=== PATIENT | female | born 1945 ===

== ENCOUNTER → 2016-06-29 | Outpatient (CLI) | payer OTHER, MEDICARE | LOC: BHFA 11:15 | PROVIDERS: ATTEND Internal Medicine Interventional Cardiology | DX: I77.9 Disorder of arteries and arterioles, unspecified (principal); R07.89 Other chest pain; I10 Essential (primary) hypertension ==

== ENCOUNTER → 2016-08-31 | Outpatient (CLI) | payer OTHER, MEDICARE | LOC: FIMAGING 14:04 | PROVIDERS: ATTEND Internal Medicine | DX: E04.2 Nontoxic multinodular goiter (principal) ==

== ENCOUNTER → 2016-10-31 | Outpatient (CLI) | payer OTHER, MEDICARE ==
[~2016-10-31] MED LIST: LIDOCAINE 1% 300 MG/30 ML SDV ONE
== END ==
LOC: FIMAGING 11:55
PROVIDERS: ATTEND Internal Medicine
PROC: 0G9K3ZX Drainage of Thyroid Gland, Percutaneous Approach, Diagnostic (ICD-10-PCS; principal; 2016-10-31)
DX: E04.1 Nontoxic single thyroid nodule (principal)

== ENCOUNTER → 2017-02-07 | Outpatient (CLI) | payer OTHER, MEDICARE | LOC: BHFA 15:30 | PROVIDERS: ATTEND Internal Medicine Cardiovascular Disease | DX: I25.10 Atherosclerotic heart disease of native coronary artery without angina pectoris (principal) ==

== ENCOUNTER → 2017-02-10 | Outpatient (CLI) | payer OTHER, MEDICARE | LOC: BHFA 14:00 | PROVIDERS: ATTEND Internal Medicine Cardiovascular Disease | DX: I25.10 Atherosclerotic heart disease of native coronary artery without angina pectoris (principal) ==

== ENCOUNTER → 2017-04-04 | Outpatient (CLI) | payer OTHER, MEDICARE | LOC: BHFA 13:30 | PROVIDERS: ATTEND Internal Medicine Cardiovascular Disease | DX: R07.9 Chest pain, unspecified (principal); R00.2 Palpitations | CPT/HCPCS: 78452; 93017; A9500 ==

== ENCOUNTER 2017-06-12 10:31 | Emergency (ER) | payer OTHER, MEDICARE ==
--- NOTE | 2017-06-12 10:50 | EDPHY ---
H & P Stated Complaint: Fell yesterday, injury to right hand and right side of face. Time Seen by Provider: 06/12/17 10:49 HPI/ROS: HPI: This is a 72-year-old female who presents with Chief Complaint: Injury to right hand and right face Location: Right hand, right side of face Quality: Injury Duration: Yesterday Signs and Symptoms: No bleeding, no radiation, no numbness, no weakness, no tingling, no incontinence, no decreased range of motion, + swelling, + pain, no fever Timing: Acute Severity: [id number] Context: Patient is right-hand dominant, presents with complaints mild-to- moderate swelling of the right in 4th knuckles since yesterday afternoon. Patient reports that she was walking down [facility] when she accidentally tripped on the sidewalk and fell forward. Denies LOC/head injury/neck pain/ dizziness/nausea/vomiting/amnesia. She reports that she used her right hand to stop her fall. She felt moderate pain in 4th and 5th digits status post hitting the ground. She noted some mild swelling and bruising yesterday afternoon and this morning. Patient believes that she may have fractured 1 of her fingers and is requesting an x-ray. Denies any paresthesias/weakness. Patient is unsure of her last tetanus shot but she politely declines any in the emergency room today as she prefers to follow up with her primary care provider. She also reports that her sunglasses hit her right cheek during the fall. Modifying Factors: None Comment: ROS: see HPI Constitutional: No fever, no chills, no weight loss Eyes: No blurred vision Respiratory: No shortness of breath, no cough Cardiovascular: No chest pain Gastrointestinal: No nausea, no vomiting no diarrhea Genitourinary: No dysuria Extremities: No myalgias Neurologic: No weakness, no numbness Skin: No rashes Hematologic: No bruising, no bleeding MEDICAL/SURGICAL/SOCIAL HISTORY: Medical history: Hypertension, depression Surgical history: Denies Social history: Retired. CONSTITUTIONAL: Polite and cooperative elderly white female, awake and alert, no obvious distress HEENT: Small area of bruising noted on the right cheek; no crepitus/step-off noted. normocephalic, PERRL, EOMI. no globe entrapment, no raccoon eyes. no Huerta signs.Tympanic membranes clear. No tympanic membrane rupture. Nares patent; no septal hematoma. Oropharynx clear, no exudate and moist pink mucosa. No malocclusion. no dental trauma. Airway patent. No lymphadenopathy. NECK: supple, no midline tenderness, flexion 45 degrees, extension 45 degrees, right and left lateral flexion 45 degrees. No meningismus. Cardiovascular: Normal S1/S2, regular rate, regular rhythm, without murmur rub or gallop. PULMONARY/CHEST: Symmetrical and nontender. no crepitus. Clear to auscultation bilaterally. Good air movement. No accessory muscle usage. ABDOMEN: Soft, nondistended, nontender, no ecchymosis, no rebound, no guarding , no peritoneal signs, no masses or organomegaly. No CVAT. PELVIC: no pain with rocking; bilateral hips flexion 125 degrees, extension 30 degrees, with no pain internal rotation and no pain external rotation. BACK: No midline tenderness, no paraspinous spasm, deep tendon reflexes 2/2, no pain with straight leg raise EXTREMITIES: 2/2 pulses, right WRIST: Extension to 70, flexion to 80, radial deviation to 20 degree, ulnar deviation to 30, no scaphoid tenderness, no tenderness over ulnar styloid, no tenderness over radial styloid. Right 4th and 5th metacarpals show [id number] swelling in the mid hand with tenderness to palpation and mild black bruising. no deformities, no clubbing, no cyanosis or edema. NEUROLOGICAL: no focal neuro deficits. GCS 15. SKIN: Warm and dry, no erythema. no rash. Good capillary refill. Source: Patient, RN/MD Exam Limitations: No limitations - Personal History Current Tetanus Diphtheria and Acellular Pertussis (TDAP): Unsure - Medical/Surgical History Hx Asthma: No Hx Chronic Respiratory Disease: No Hx Diabetes: No Hx Cardiac Disease: No Hx Renal Disease: No Hx Cirrhosis: No Hx Alcoholism: No Hx HIV/AIDS: No Hx Splenectomy or Spleen Trauma: No Other PMH: HTN - Social History Smoking Status: Never smoked Constitutional: Initial Vital Signs Temperature (C) 36.6 C 06/12/17 10:32 Heart Rate 73 06/12/17 10:32 Respiratory Rate 16 06/12/17 10:32 Blood Pressure 134/59 H 06/12/17 10:32 O2 Sat (%) 96 06/12/17 10:32 O2 Delivery Mode Room Air Allergies/Adverse Reactions: No Known Allergies Allergy (Unverified 05/16/14 15:11) Home Medications: Medication Instructions Recorded Diovan 05/16/14 Lexapro 05/16/14 Medical Decision Making - Diagnostics Imaging Results: Imaging Impressions Hand X-Ray 06/12/17 10:55 Impression: Negative. No acute fracture. Wrist X-Ray 06/12/17 10:55 Impression: Negative. No acute fracture. Procedures: Procedure: Splint placement. A right Velcro wrist splint was applied by the Emergency Room neurophysiological technician. After application of the splint I returned and re-examined the patient. The splint was adequately immobilizing the joint and distal to the splint the patient's circulation and sensation was intact. ED Course/Re-evaluation: Right hand x-ray, right wrist x-ray ordered No signs of neurovascular compromise/tenting of skin/compartment syndrome/ extremities and joints examined above and below area of concern and are neurovascularly intact. No indication for CT head or CT cervical imaging. Patient politely declined and is adamant that she did not hit her head or lose consciousness and that she does not need any imaging of her head or neck. X-ray my read shows mild soft tissue swelling; no fracture/dislocation Placed in right Velcro wrist splint, rice therapy, Ortho follow-up This patient was seen under the supervision of my secondary supervising physician. I evaluated care for this patient independently. Differential Diagnosis: Differential diagnosis includes but is not limited to tendon injury, nerve injury, phalanx fracture, mid hand fracture, radial fracture, ulnar fracture. Departure - Departure Disposition: Home, Routine, Self-Care Clinical Impression: Contusion of hand, right Qualifiers: Encounter type: initial encounter Qualified Code(s): S60.221A - Contusion of right hand, initial encounter Sprain of hand, right Qualifiers: Encounter type: initial encounter Qualified Code(s): S63.91XA - Sprain of unspecified part of right wrist and hand, initial encounter Sprain of right wrist Qualifiers: Encounter type: initial encounter Qualified Code(s): S63.501A - Unspecified sprain of right wrist, initial encounter Condition: Good Instructions: Contusion in Adults (ED) Additional Instructions: Wear the Velcro wrist splint while out of bed until pain free or seen by Orthopedics. Take Tylenol 650 mg every 4 hours and/or Ibuprofen 600 mg every 8 hours with food as needed for pain. Use Percocet every 6 hours as needed for severe/break through pain. Apply ice for 30 minutes at a time; 2-3 times per day for the next 1-2 days. Follow up with Orthopedics in 7-10 days if symptoms persist at which time they will evaluate and recommend with you if conservative management versus further imaging is indicated. The x-rays obtained in the emergency department today demonstrate no evidence of an obvious fracture. Sometimes fractures are not obvious on the initial set of x-rays performed in the ED. For this reason, you should have repeat x-rays performed in 7-10 days if you are having any pain exclude the possibility of an occult fracture. Return to the ER immediately if you experience new or worsening pain, discoloration, numbness, tingling, or any other symptoms that concern you. Referrals: Marisela Robertson MD [Primary Care Provider] - As per Instructions
[2017-06-12 12:04] VITALS: BP 138/90
== END 2017-06-12 12:04 | disposition home or self-care (01) ==
DX: S60.221A Contusion of right hand, initial encounter (principal); S63.91XA Sprain of unspecified part of right wrist and hand, initial encounter; S63.501A Unspecified sprain of right wrist, initial encounter; I10 Essential (primary) hypertension; W01.198A Fall on same level from slipping, tripping and stumbling with subsequent striking against other object, initial encounter; Y92.410 Unspecified street and highway as the place of occurrence of the external cause; Y99.8 Other external cause status; Y93.01 Activity, walking, marching and hiking

== ENCOUNTER → 2017-06-21 | Outpatient (CLI) | payer OTHER, MEDICARE | LOC: FIMAGING 15:20 | DX: Z09 Encounter for follow-up examination after completed treatment for conditions other than malignant neoplasm (principal); S60.221A Contusion of right hand, initial encounter; M85.80 Other specified disorders of bone density and structure, unspecified site; R93.6 Abnormal findings on diagnostic imaging of limbs ==

== ENCOUNTER → 2017-10-05 | Outpatient (CLI) | payer OTHER, MEDICARE | LOC: FIMAGING 10:50 | PROVIDERS: ATTEND Internal Medicine | DX: Z13.820 Encounter for screening for osteoporosis (principal); M81.0 Age-related osteoporosis without current pathological fracture; E21.3 Hyperparathyroidism, unspecified; Z78.0 Asymptomatic menopausal state ==

== ENCOUNTER → 2017-11-09 | Outpatient (CLI) | payer OTHER, MEDICARE | LOC: FCPNEURO 21:30 | PROVIDERS: ATTEND Psychiatry & Neurology Sleep Medicine | DX: G47.33 Obstructive sleep apnea (adult) (pediatric) (principal) ==

== ENCOUNTER → 2017-12-04 | Outpatient (CLI) | payer OTHER, MEDICARE | LOC: BHFA 13:00 | PROVIDERS: ATTEND Internal Medicine Interventional Cardiology | DX: I48.0 Paroxysmal atrial fibrillation (principal); R00.2 Palpitations ==

== ENCOUNTER → 2018-03-08 | Outpatient (CLI) | payer OTHER, MEDICARE | LOC: FIMAGING 09:44 | PROVIDERS: ATTEND Surgery | DX: E21.0 Primary hyperparathyroidism (principal) | CPT/HCPCS: 78070; A9500 ==

== ENCOUNTER 2018-03-09 06:37 | Day surgery (SDC) | payer OTHER, MEDICARE ==
[2018-03-09] MEDS ORDERED: ceFAZolin 2 GM/DEXTROSE 100 ML IV ONE (06:55)
[2018-03-09] MEDS ORDERED: LR 1,000 ML IV ONE (06:56)
[2018-03-09] MEDS ORDERED: LIDOCAINE 1% 2 ML INJ ID PRN (06:56)
--- NOTE | 2018-03-09 06:57 | PDHPUP ---
History & Physical Update H&P update statement: This history and physical update is based on an assessment of the patient which was completed after admission or registration (within 24 hours), but prior to the surgery/procedure. updated H&P update: H&P reviewed & patient examined, no change in patient's condition since H&P completed H&P changes: no changes
[2018-03-09] MEDS ORDERED: CLINDAMYCIN 900 MG/DEXTROSE 50 ML IV ONE (07:10)
[2018-03-09 07:57] LABS: INR 0.88 (0.83-1.16); PROTIME(PATIENT) 12.2 SEC (12.0-15.0)
[2018-03-09] MEDS ORDERED: MIDAZOLAM 2 MG/2 ML VIAL IVP ONE (08:24)
[2018-03-09] MEDS ORDERED: oxyCODONE IR 5 MG TAB PO PRN (08:24)
[2018-03-09] MEDS ORDERED: ONDANSETRON 4 MG/2 ML VIAL IVP PRN (08:24)
[2018-03-09] MEDS ORDERED: HYDROmorphONE/DILAUDID 2 MG/ML INJ IVP PRN (08:24)
[2018-03-09] MEDS ORDERED: ALBUTEROL 3 ML DEYVIAL IH PRN (08:24)
[2018-03-09] MEDS ORDERED: NALOXONE HCL 0.4 MG/ML INJ IVP PRN (08:24)
[2018-03-09] MEDS ORDERED: DEXAMETHASONE 4 MG/ML VIAL IVP PRN (08:24)
[2018-03-09] MEDS ORDERED: ACETAMINOPHEN 500 MG TAB PO PRN (08:24)
[2018-03-09] MEDS ORDERED: fentaNYL 100 MCG/2 ML INJ IVP PRN (08:24)
--- NOTE | 2018-03-09 08:25 | PDANEPAE ---
ANE History of Present Illness Excisional Biopsy of Cervical Lymph node ANE Past Medical History - Cardiovascular History Hx Hypertension: Yes Hx Arrhythmias: Yes Hx Chest Pain: No Hx Coronary Artery / Peripheral Vascular Disease: Yes Hx CHF / Valvular Disease: No Hx Palpitations: Yes Cardiovascular History Comment: HYPERLIPIDEMIA. PAROXYSMAL ATRIAL FIB - Pulmonary History Hx COPD: No Hx Asthma/Reactive Airway Disease: No Hx Recent Upper Respiratory Infection: No Hx Oxygen in Use at Home: No Hx Sleep Apnea: No Sleep Apnea Screening Result - Last Documented: Negative - Neurologic History Hx Cerebrovascular Accident: No Hx Seizures: No Hx Dementia: No Neurologic History Comment: OCCASIONAL H/As - Endocrine History Hx Diabetes: No Endocrine History Comment: A1C 5.4 - Renal History Hx Renal Disorders: No - Liver History Hx Hepatic Disorders: No Hepatic History Comment: CHOLECYSTECTOMY - Neurological & Psychiatric Hx Hx Neurological and Psychiatric Disorders: Yes Neurological / Psychiatric History Comment: ANXIETY - Cancer History Hx Cancer: No - Congenital Disorder History Hx Congenital Disorders: No Congenital History Comment: FAMILY HX CVA - GI History Hx Gastrointestinal Disorders: No - Other Health History Other Health History: NEG - Chronic Pain History Chronic Pain: No - Surgical History Prior Surgeries: CHOLECYSTECTOMY - AGE 26. 2012 ANKLE FX REPAIR. HARDWARE REMOVAL ANKLE ANE Review of Systems Review of Systems: - Exercise capacity METS (RN): 5 METS ANE Patient History - Allergies Allergies/Adverse Reactions: cefazolin [From Ancef] Allergy (Verified 03/09/18 07:08) - Home Medications Home Medications: Escitalopram Oxalate [Lexapro] 20 mg PO DAILY 05/16/14 [Last Taken 03/08/18 20: 30] Valsartan [Diovan (*)] 160 mg PO DAILY 05/16/14 [Last Taken 03/07/18] Apixaban [Eliquis] 5 mg PO BID 03/07/18 [Last Taken 03/06/18] Cholecalciferol Vit D3 [Vitamin D3 2000 units tab (OTC)] 2,000 units PO DAILY [Last Taken 03/05/18] Cyanocobalamin [Vitamin B12 (*)] 1,000 mcg PO BID 03/07/18 [Last Taken 03/05/18] Diltiazem HCl [Cartia Xt] 120 mg PO DAILY 03/07/18 [Last Taken 03/08/18] Propafenone HCl [Rythmol 150mg (*)] 150 mg PO TID 03/07/18 [Last Taken 03/09/18 04:30] - NPO status NPO Since - Liquids (Date): 03/09/18 NPO Since - Liquids (Time): 05:00 NPO Since - Solids (Date): 03/09/18 NPO Since - Solids (Time): 20:00 - Smoking Hx Smoking Status: Never smoked ANE Labs/Vital Signs - Labs Result Diagrams: 03/09/18 07:35 - Vital Signs Blood Pressure: 140/74 Heart Rate: 59 Respiratory Rate: 16 O2 Sat (%): 92 Height: 152.4 cm Weight: 74.843 kg ANE Physical Exam - Airway Neck exam: FROM Mallampati Score: Class 2 Mouth exam: normal dental/mouth exam - Pulmonary Pulmonary: clear to auscultation - Cardiovascular Cardiovascular: regular rate and rhythym - ASA Status ASA Status: III ANE Anesthesia Plan Anesthesia Plan: general endotracheal anesthesia
[2018-03-09] MEDS ORDERED: THROMBIN (BOVINE) 5,000 UNIT VIAL TP ONE (08:28)
[2018-03-09] MEDS ORDERED: BUPIVACAINE/EPI 0.5% 30 ML SDV ONE (08:28)
[2018-03-09] MEDS ORDERED: PROPOFOL 200 MG/20 ML VIAL ONE ×2 (08:32→09:40)
[2018-03-09] MEDS ORDERED: fentaNYL 100 MCG/2 ML INJ ONE ×2 (08:32→09:09)
[2018-03-09] MEDS ORDERED: LIDOCAINE 2% 100 MG/5 ML SYR ONE (08:37)
[2018-03-09] MEDS ORDERED: ONDANSETRON 4 MG/2 ML VIAL ONE (08:38)
[2018-03-09] MEDS ORDERED: DEXAMETHASONE 4 MG/ML VIAL ONE ×2 (08:38)
[2018-03-09] MEDS ORDERED: ROCURONIUM 50 MG/5 ML VIAL ONE (08:38)
[2018-03-09] MEDS ORDERED: SUGAMMADEX SODIUM 200 MG/2 ML VIAL IVP ONE (09:34)
--- NOTE | 2018-03-09 09:54 | POSTOPPROG ---
Post Op Note Date of Operation: 03/09/18 Surgeon: Brendan Dey Cell Tester: Mohit Burns Anesthesiologist: Dr Ramos Anesthesia: GET(General Endotracheal) Pre-op Diagnosis: Left cervical node Hx of possible lymphoma Post-op Diagnosis: same Indication: same Procedure: Left deep cervical node excision Findings: no abnormalities noted during surgery Inf/Abcess present in the surg proc area at time of surgery?: No Depth: Deep Incisional (Fascial) EBL: Minimal Specimen(s): cervical node
--- NOTE | 2018-03-09 09:57 | POSTANESTH ---
Post Anesthetic Evaluation Cardiovascular Status: Normal, Stable Respiratory Status: Normal, Stable Level of Consciousness/Mental Status: Can Participate in Eval, Mildly Sleepy, Arousable Pain Control: Adequate, Prn Tx Ordered Nausea/Vomiting Control: Adequate, Prn Tx Ordered Complications Possibly Related to Anesthesia: None Noted
[2018-03-09 11:38] VITALS: BP 115/66
== END 2018-03-09 12:07 | disposition home or self-care (01) ==
LOC: FSGY 06:37 → UNDOADMOB 06:37 → F3E 06:37 → EDSTATUS 08:30 → UNDODISOB 12:07 → FSGY 12:07
PROVIDERS: ATTEND Surgery
PROC: 07B20ZX Excision of Left Neck Lymphatic, Open Approach, Diagnostic (ICD-10-PCS; principal; 2018-03-09 08:30)
DX: C91.10 Chronic lymphocytic leukemia of B-cell type not having achieved remission (principal); E21.3 Hyperparathyroidism, unspecified; I10 Essential (primary) hypertension; I77.9 Disorder of arteries and arterioles, unspecified; I48.0 Paroxysmal atrial fibrillation
CPT/HCPCS: 88184-90; 88185-91; J0690; J1100; J2001; J2250; J2405; J2704; J3010

== ENCOUNTER 2018-03-11 08:48 | Inpatient (IN) | payer OTHER, MEDICARE ==
--- NOTE | 2018-03-11 09:00 | EDPHY ---
H & P Stated Complaint: rash s/p surgery Time Seen by Provider: 03/11/18 08:59 HPI/ROS: CHIEF COMPLAINT: Rash following surgery HISTORY OF PRESENT ILLNESS: The patient presents to the ED after she has developed a rash to her torso following surgery. The patient recently had a neck surgery performed by Dr. Dey. It was uneventful. She received antibiotics and has now developed a rash in her armpits anterior chest wall. She complains of systemic symptoms of generalized malaise and fatigue. The patient denies any history of fall or trauma. She has not been taking pain medications. She does have a history of a fairly severe skin reaction either from a Skin prep or preoperative antibiotic she received in the past. The patient had a deep node dissection in her left neck. In reviewing her preoperative antibiotics it is uncertain whether she received clindamycin or Ancef. REVIEW OF SYSTEMS: A comprehensive 10 point review of systems is otherwise negative aside from elements mentioned in the history of present illness. Source: Patient Exam Limitations: No limitations - Personal History Current Tetanus/Diphtheria Vaccine: Unsure Current Tetanus Diphtheria and Acellular Pertussis (TDAP): Unsure - Medical/Surgical History Hx Asthma: No Hx Chronic Respiratory Disease: No Hx Diabetes: No Hx Cardiac Disease: Yes Hx Renal Disease: No Hx Cirrhosis: No Hx Alcoholism: No Hx HIV/AIDS: No Hx Splenectomy or Spleen Trauma: No Other PMH: HTN, afib, - Social History Smoking Status: Never smoked - Physical Exam Exam: General Appearance: Alert, no distress Eyes: Pupils equal and round no pallor or injection Neck: Dry dressing over surgical incision which is clean dry and intact ENT, Mouth: Dry mucous membranes Respiratory: There are no retractions, lungs are clear to auscultation Cardiovascular: Tachycardic, irregular Gastrointestinal: Abdomen is soft and nontender, no masses, bowel sounds normal Neurological: 5/5 strength noted all 4 extremities Skin: Diffuse erythematous blistering rash noted on the torso and axilla Musculoskeletal: Neck is supple nontender Extremities: symmetrical, full range of motion Psychiatric: Patient is oriented X 3, there is no agitation Constitutional: Initial Vital Signs Temperature (C) 36.5 C 03/11/18 08:57 Heart Rate 88 03/11/18 08:57 Respiratory Rate 16 03/11/18 08:57 Blood Pressure 81/51 L 03/11/18 08:57 O2 Sat (%) 92 03/11/18 08:57 O2 Delivery Mode Room Air Allergies/Adverse Reactions: cefazolin [From Ancef] Allergy (Verified 03/11/18 08:56) Home Medications: Medication Instructions Recorded Escitalopram Oxalate [Lexapro] 20 mg PO HS 05/16/14 Valsartan [Diovan (*)] 160 mg PO DAILY 05/16/14 Apixaban [Eliquis] 5 mg PO BID 03/07/18 Diltiazem HCl [Cartia Xt] 120 mg PO DAILY 03/07/18 Propafenone HCl [Rythmol 150mg (*)] 150 mg PO TID 03/07/18 Medical Decision Making - Diagnostics EKG Interpretation: EKG: Complete interpretation has been separately recorded in the [facility] archive. Summary impression: Atrial fibrillation, rate 149 ED Course/Re-evaluation: The patient presents the emergency department after a likely drug reaction following recent surgery. I did inform Dr. Dey of her arrival in the emergency department. Patient is noted to have a reassuring venous pH and arterial lactate. Blood cultures x2 have been ordered. The patient has had a similar reaction in the past either to a Skin prep or preoperative antibiotic. Patient is noted to be in recurrent atrial fibrillation. The patient did receive IV fluid rehydration in the emergency department. Her tachycardia improved from 150 to 80s. The patient will require admission to the hospital for observation this evening. Consultation is made with the hospitalist service. The patient will be admitted by Dr. Garcia. Differential Diagnosis: Differential diagnosis considered includes drug reaction, Stoddard-Chi syndrome, arrhythmia, postoperative infection, metabolic derangement - Data Points Laboratory Results: Laboratory Results 03/11/18 05:30 03/11/18 10:45 03/11/18 03/11/18 03/11/18 10:45 10:08 05:30 WBC RBC Hgb Hct MCV MCH MCHC RDW Plt Count MPV Neut % (Auto) Lymph % (Auto) [place] % (Auto) Eos % (Auto) Baso % (Auto) Nucleat RBC Rel Count Absolute Neuts (auto) Absolute Lymphs (auto) Absolute Monos (auto) Absolute Eos (auto) Absolute Basos (auto) Absolute Nucleated RBC Immature Gran % Immature Gran # Puncture Site RIGHT RADIAL Patient Temperature 37.0 DEGREES DEGREES pCO2 33 mmHg L mmHg (34-38) pO2 58 mmHg L mmHg (65-75) Total CO2 20 mEq/L L mEq/L (23-27) ABG pH 7.37 (7.35-7.45) ABG HCO3 19 mEq/L L mEq/L (22-26) ABG O2 Saturation 89 % L % (92-95) ABG Base Excess -5.1 mEq/L L mEq/L (-2.5-2.5) ABG Lactic Acid 1.1 mmol/L mmol/L (0.5-1.6) O2 Concentration % % % (0-100) Sodium 129 mEq/L L mEq/L REJ (135-145) Potassium 4.6 mEq/L mEq/L REJ (3.5-5.2) Chloride 104 mEq/L mEq/L REJ (97-110) Carbon Dioxide 18 mEq/l L mEq/l REJ (22-31) Anion Gap 7 mEq/L mEq/L REJ (6-14) BUN 26 mg/dL H mg/dL REJ (7-23) Creatinine 1.0 mg/dL mg/dL REJ (0.6-1.0) Estimated GFR 55 REJ Glucose 88 mg/dL mg/dL REJ (70-100) Calcium 8.5 mg/dL mg/dL REJ (8.5-10.4) Procalcitonin 0.07 ng/mL ng/mL (0.02-0.10) Prolactin 11.7 ng/mL ng/mL (3.0-18.6) 03/11/18 05:30 WBC 18.86 10^3/uL H 10^3/uL (3.80-9.50) RBC 4.80 10^6/uL 10^6/uL (4.18-5.33) Hgb 14.3 g/dL g/dL (12.6-16.3) Hct 42.7 % % (38.0-47.0) MCV 89.0 fL fL (81.5-99.8) MCH 29.8 pg pg (27.9-34.1) MCHC 33.5 g/dL g/dL (32.4-36.7) RDW 13.3 % % (11.5-15.2) Plt Count 256 10^3/uL 10^3/uL (150-400) MPV 10.8 fL fL (8.7-11.7) Neut % (Auto) 75.7 % H % (39.3-74.2) Lymph % (Auto) 15.7 % % (15.0-45.0) [place] % (Auto) 5.7 % % (4.5-13.0) Eos % (Auto) 1.2 % % (0.6-7.6) Baso % (Auto) 0.3 % % (0.3-1.7) Nucleat RBC Rel Count 0.0 % % (0.0-0.2) Absolute Neuts (auto) 14.29 10^3/uL H 10^3/uL (1.70-6.50) Absolute Lymphs (auto) 2.96 10^3/uL 10^3/uL (1.00-3.00) Absolute Monos (auto) 1.07 10^3/uL H 10^3/uL (0.30-0.80) Absolute Eos (auto) 0.23 10^3/uL 10^3/uL (0.03-0.40) Absolute Basos (auto) 0.05 10^3/uL 10^3/uL (0.02-0.10) Absolute Nucleated RBC 0.00 10^3/uL 10^3/uL (0-0.01) Immature Gran % 1.4 % H % (0.0-1.1) Immature Gran # 0.26 10^3/uL H 10^3/uL (0.00-0.10) Puncture Site Patient Temperature pCO2 pO2 Total CO2 ABG pH ABG HCO3 ABG O2 Saturation ABG Base Excess ABG Lactic Acid O2 Concentration % Sodium Potassium Chloride Carbon Dioxide Anion Gap BUN Creatinine Estimated GFR Glucose Calcium Procalcitonin Prolactin Medications Given: Discontinued Medications Sodium Chloride (Ns) 1,000 mls @ 0 mls/hr IV EDNOW ONE; Wide Open PRN Reason: Protocol Stop: 03/11/18 09:08 Last Admin: 03/11/18 09:36 Dose: 1,000 mls Sodium Chloride (Ns) 1,000 mls @ 0 mls/hr IV ONCE ONE PRN Reason: Wide Open Stop: 03/11/18 10:57 Last Admin: 03/11/18 10:56 Dose: 1,000 mls Diltiazem HCl 125 mg/ Dextrose 125 mls @ 0 mls/hr IV EDNOW ONE; As Directed PRN Reason: Protocol Stop: 03/11/18 11:14 Last Admin: 03/11/18 11:39 Dose: 125 mls Departure - Departure Disposition: [facility] Inpatient Acute Clinical Impression: Drug reaction, SIRS (systemic inflammatory response syndrome), Atrial fibrillation Condition: Fair
[2018-03-11] MEDS ORDERED: NS 1,000 ML IV ONE ×2 (09:07→10:56)
[2018-03-11 09:46] LABS: PLATELET COUNT 256 10^3/uL (150-400)
--- NOTE | 2018-03-11 10:32 | CPEKG ---
Test Reason : OPEN Blood Pressure : / mmHG Vent. Rate : 149 BPM Atrial Rate : 246 BPM P-R Int : 149 ms QRS Dur : 085 ms QT Int : 272 ms P-R-T Axes : 000 043 -50 degrees QTc Int : 428 ms Atrial fibrillation Confirmed by Carlin Esposito ([id number]) on 03/11/2018 10:32:07 AM Referred By: Carlin Esposito Confirmed By:Carlin Esposito
[2018-03-11] MEDS ORDERED: ACETAMINOPHEN 325 MG TAB PO PRN (11:03)
[2018-03-11] MEDS ORDERED: ONDANSETRON DISINTEGRATING 4 MG TAB PO PRN (11:03)
[2018-03-11] MEDS ORDERED: ONDANSETRON 4 MG/2 ML VIAL IVP PRN (11:03)
[2018-03-11] MEDS ORDERED: PROPAFENONE HCL 150 MG TAB PO ONE (11:09)
[2018-03-11] MEDS ORDERED: DILTIAZEM 125 MG in D5W 125 ML IV ONE (11:13)
[2018-03-11] MEDS: PROPAFENONE HCL 150 MG TAB PO SCH ×3 (13:32→22:50)
[2018-03-11] MEDS ORDERED: APIXABAN 5 MG TAB PO ONE (13:39)
[2018-03-11] MEDS: APIXABAN 5 MG TAB PO SCH ×2 (13:41→22:50)
[2018-03-11] MEDS: NS 1,000 ML IV SCH ×2 (14:53→22:49)
--- NOTE | 2018-03-11 14:54 | GHP ---
[f rep st] HISTORY AND PHYSICAL DATE OF ADMISSION: 03/11/2018 CHIEF COMPLAINT: Severe allergic drug reaction, atrial fibrillation with rapid ventricular response. HISTORY OF PRESENT ILLNESS: A 73-year-old female with a history of paroxysmal atrial fibrillation, hypertension presenting with severe drug reaction. She underwent cervical node dissection/excision on 03/[address] Dey. 24 hours later, she developed a hot red rash involving her face, neck and armpits. This has now extended down to her abdomen and legs. She also felt nauseated. No diarrhea or vomiting. Feels fatigued and has had decreased oral intake. Has felt fevers and chills, but no documented fever. Denies shortness of breath, difficulty swallowing or throat swelling. She says she had a similar skin reaction 5 years ago after an ankle surgery. Thought it was related to Ancef, but uncertain. During the procedure on the , she did receive rocuronium, propofol, a dose of clindamycin, bupivacaine, Fentanyl and Versed. REVIEW OF SYSTEMS: I completed a 10-point review of systems, negative except as noted in HPI. PAST MEDICAL HISTORY: 1. Paroxysmal atrial fibrillation. 2. Hypertension. 3. Hyperlipidemia. 4. Palpitations. PAST SURGICAL HISTORY: Cholecystectomy, ankle. ALLERGIES: Ancef. FAMILY HISTORY: Hypertension, extensive in maternal and paternal sides, diabetes, history of breast cancer. Father and mother, CVA. SOCIAL HISTORY: Lives in [place] alone. 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 No alcohol , tobacco or illicits. HOME MEDICATIONS: Valsartan 160 daily, Rythmol 150 mg t.i.d., Lexapro 20 at night, diltiazem 120 daily, Eliquis 5 daily. ALLERGIES: Cefazolin. PHYSICAL EXAM: VITAL SIGNS: Temperature 36.9, blood pressure 124/50, heart rate 120s to 140s, respirations 18, 92% on room air. GENERAL: Lying in bed in no acute distress. Appears fatigued. HEENT: PERRLA. Dry mucous membranes. Oropharynx is clear. There is no tonsillar swelling or obstruction. No stridor. No oral lesions or ulcerations. CV: Tachy, irregular irregular. LUNGS: Clear. No wheezes, crackles, or rhonchi. ABDOMEN: Soft, nontender, nondistended. Positive bowel sounds. : No [place]. MUSCULOSKELETAL: Moving all 4 extremities. NEURO: 2 through 12 intact. PSYCH: Alert and oriented x3. SKIN: Diffuse macular rash over the chest, arms, back and legs. It is beefy red, warm to touch. There is some sloughing of skin under her armpits and on her buttock. There is mild sloughing around her mouth, but no mucosal involvement in mouth or vagina. LABS: WBC 18, hemoglobin 14, hematocrit 42, platelets 256. Lactate is 1.1. Sodium 129 (baseline is 136), potassium 4.6, chloride 104, carbon dioxide 18, creatinine 1 (baseline 0.8). LFTs within normal. Total protein 5.3, albumin is 2.9, procalcitonin 0. EKG personally reviewed by me, atrial fibrillation, heart rates 140. ASSESSMENT AND PLAN: 1. Severe drug reaction: suspect from Clindamycin. Discussed case with Dr. Canela with [facility] who reviewed photos. Superficial sloughing not c/w Braeden's-Chi's. Supportive care with aggressive intravenous fluid resuscitation, daily moisturizer. This was added to her allergy list. There is no mucosal involvement. No difficulty breathing or stridor. 2. Leukocytosis secondary to stress reaction with acute reaction. 3. Hypovolemic hyponatremia. Insensible losses with extensive burn-like reaction. Intravenous fluids. 4. Acute kidney injury. Creatinine elevated to 1. Continue intravenous fluids. Repeat in the morning. 5. Anion gap acidosis secondary to insensible losses. Hydrate and repeat. 6. Atrial fibrillation with rapid ventricular response. Triggered with acute reaction. She did not take her medications this morning. We will resume Rythmol. She is on a a diltiazem drip here and Eliquis. Monitor on telemetry in the PCU. 7. Depression, Lexapro. 8. Hypertension. Hold Diovan with acute dehydration and hypotension. 9. Deep vein thrombosis prophylaxis, Eliquis. DISPOSITION: Warrants inpatient admission for IV fluids, diltiazem for atrial fibrillation. /[id number]/MODL MTDD
[2018-03-11] MEDS: CETIRIZINE 10 MG TAB PO SCH (16:25)
[2018-03-11] MEDS ORDERED: HYDROCODONE/APAP 5/325 TAB PO PRN (16:32)
[2018-03-11] MEDS ORDERED: oxyCODONE IR 5 MG TAB PO PRN (16:32)
[2018-03-11] MEDS: DILTIAZEM CD 120 MG CAP PO SCH ×2 (19:11→19:13)
[2018-03-11] MEDS ORDERED: APIXABAN 5 MG TAB PO SCH (21:00)
[2018-03-11] MEDS ORDERED: ESCITALOPRAM OXALATE 10 MG TAB PO SCH (21:00)
[2018-03-12] MEDS: DILTIAZEM CD 120 MG CAP PO SCH (09:05)
[2018-03-12] MEDS: APIXABAN 5 MG TAB PO SCH (09:05)
[2018-03-12] MEDS: CETIRIZINE 10 MG TAB PO SCH (09:05)
[2018-03-12] MEDS: PROPAFENONE HCL 150 MG TAB PO SCH (09:05)
--- NOTE | 2018-03-12 10:14 | PDMN ---
Medical Necessity Medical necessity: [facility] GR yo w/ severe drug reaction suspect from clindamycin s/p cervical node dissection on 03/09/18. Skin w/ superficial sloughing and acute Stoddard-Chi rxn requiring aggressive supportive care w/ IVF meeting med nec IP status. Pt noted also to be in afib w/ RVR triggered w/ acute rxn. Hx Afib, HTN, HLD, palpitations
[2018-03-12 11:38] VITALS: BP 122/57
--- NOTE | 2018-03-12 13:25 | PDIAF ---
- Diagnosis Diagnosis: Severe drug reaction, atrial fibrillation Code Status: Full Code - Medication Management Discharge Medications: electronically signed and located in the Home Medication List. - Orders Services needed: Home Care, Registered Nurse Home Care Face to Face: I certify that this patient was under my care and that I had the required [id number] encounter meeting the encounter requirements on the discharge day. My findings support the fact that the patient is homebound as defined in Home Care Face to Face Continued: CMS Chapter 7 Medicare Benefits Manual 30.1.1 , The condition of the patient is such that there exists a normal inability to leave home and consequently, leaving home would require a considerable and taxing effort. Diet Recommendation: no restrictions on diet Diet Texture: Regular Texture Diet Additional Instructions: Call your doctor if significant skin blistering, fevers. Apply moisturizer over affected area twice a day. - Follow Up Care Current Providers and Referrals: Marisela Robertson MD [Primary Care Provider] - As per Instructions
--- NOTE | 2018-03-12 13:46 | GDS ---
[f rep st] DISCHARGE SUMMARY DISCHARGE DIAGNOSES: 1. Severe drug reaction from clindamycin. 2. Leukocytosis. 3. Hypovolemic hyponatremia. 4. Acute kidney injury. 5. Non-anion gap acidosis. 6. Atrial fibrillation with rapid ventricular response. 7. Hypertension. 8. Hyperlipidemia. HISTORY OF PRESENT ILLNESS: A 73-year-old female with history of paroxysmal atrial fibrillation, hypertension, presenting with severe drug reaction. She underwent cervical node dissection/excision on March [address] Dey. Twenty- four hours later, she developed a hot red rash involving her face, neck, and armpits. This now extended to her abdomen and legs with some skin sloughing. Has felt feverish, but no temperature at home. Says she had a similar skin reaction 5 years ago after ankle surgery and receiving antibiotics. During the procedure, she received rocuronium, propofol, clindamycin, bupivacaine, fentanyl , and Versed. HOSPITAL COURSE BY PROBLEM: 1. Severe drug reaction: Secondary to clindamycin. I did discuss case with Dr. Canela at [facility] who reviewed photos. Superficial sloughing is not consistent with Stoddard-Chi. The affected area is much improved today. She is to apply twice daily moisturizer and can take Zyrtec. 2. Leukocytosis: Secondary to stress reaction. This is trending down. 3. Hypovolemic hyponatremia: Resolved with aggressive IV fluids. 4. DARELL. Creatinine elevated at 1, now 0.8 after fluids. Non-anion gap acidosis secondary to insensible losses, resolved. 5. Atrial fibrillation with RVR. Heart rate initially 170s secondary to acute drug reaction demand. She was on diltiazem drip briefly and converted to normal sinus rhythm. Resume home diltiazem, Rythmol, and Eliquis. 6. Depression. Lexapro. 7. Hypertension. Resume home medications tomorrow. 8. Patient is stable for discharge home with home nurse to help with skin care. FOLLOWUP: Cardiology. PHYSICAL EXAM: VITAL SIGNS: Today, temperature 36.4, blood pressure 122/57, heart rate in the 70s, respirations 18, 98% on room air. GENERAL: Obese female in no acute distress. HEENT: PERRLA. Moist mucous membranes. No oral ulceration. Sloughing around mouth is nearly resolved. CV: Regular rate and rhythm. Some lower extremity edema, nonpitting. LUNGS: Clear. No crackles. SKIN: Warm macular beet red rash receding over chest, abdomen, and back. There is some swelling under armpits and under the gluteal folds. NEURO: 2 through 12 intact. PSYCH: Alert and oriented x3. TIME SPENT ON DISCHARGE: Greater than 30 minutes bedside counseling patient on skin care and return precautions. Patient's symptoms improved earlier than expected given acuity at admission, thus can DC today. /[id number]/MODL MTDD
--- NOTE | 2018-03-12 14:50 | ASMTLACE ---
INDIRAE Length of stay for Answers: 1 day current admission Acuity / Level of Answers: Yes Care: Did the patient have an inpatient admission? Comorbidities - select Answers: Other Notes: HTN; AFib all that apply # of Emergency department Answers: 1-2 visits in the last 6 months Social determinants Answers: Mental health diagnosis (anxiety, depression, pers onality disorders, etc.) Score: 9 Date Signed: 03/12/2018 02:50 PM Electronically Signed By:Karol Steven RN
--- NOTE | 2018-03-12 15:09 | ASMTDCNOTE ---
Case Management Discharge Discharge Order Complete? Answers: Yes Patient to Obtain Answers: Independently Medications Transportation Arranged Answers: Other Notes: VIA Faxed Final Orders Answers: Yes Discharge Comments Notes: Patient discharging home. Home RN ordered through [facility]. Orders sent to [facility] Date Signed: 03/12/2018 03:08 PM Electronically Signed By:Karol Steven RN
== END 2018-03-12 16:10 | disposition home health service (06) | DRG 607 ==
LOC: OBSVTOIN 14:12 → F2W 14:41
PROVIDERS: ADMIT Internal Medicine; ATTEND Internal Medicine
DX: L27.0 Generalized skin eruption due to drugs and medicaments taken internally (principal); N17.9 Acute kidney failure, unspecified; E87.1 Hypo-osmolality and hyponatremia; E87.2 Acidosis; I48.91 Unspecified atrial fibrillation; T36.8X5A Adverse effect of other systemic antibiotics, initial encounter; E86.1 Hypovolemia; I10 Essential (primary) hypertension; E78.5 Hyperlipidemia, unspecified
CPT/HCPCS: 96374

== ENCOUNTER → 2018-07-27 | Outpatient (CLI) | payer OTHER, MEDICARE | LOC: FCPNEURO 20:00 ==